=== PATIENT | male | born 1950 | race Caucasian/White ===

== ENCOUNTER 2016-07-19 06:07 | Inpatient (IN) | payer OTHER ==
[~2016-07-19] VITALS: Ht 177.8 cm; Wt 104.2 kg
[2016-07-19] MEDS ORDERED: 0.9% SODIUM CHLORIDE 5 ML NEB SOLUTION NEB ONE ×2 (06:28→10:16)
[2016-07-19] MEDS ORDERED: ALBUTEROL SULFATE 5 MG/ML 20 ML NEB SOLN [BULK] NEB ONE ×2 (06:30→10:00)
[2016-07-19] MEDS ORDERED: IPRATROPIUM BROMIDE 0.5 MG/2.5 ML NEB SOLUTION NEB ONE ×2 (06:30→10:00)
[2016-07-19] MEDS ORDERED: OMEG100019 PO (06:34)
[2016-07-19] MEDS ORDERED: ASPI-556 PO (06:34)
[2016-07-19 06:44] LABS: BASOPHILS % (AUTO) 0.9 % (0.0-2.0); EOSINOPHILS # (AUTO) 0.03 K/uL (0.00-0.70); EOSINOPHILS % (AUTO) 0.25 % (1.0-6.0); HEMATOCRIT 47.7 % (41-53); HEMOGLOBIN 15.9 g/dL (13.5-17.5); LYMPHOCYTES # (AUTO) 2.8 K/uL (1.0-4.8); LYMPHOCYTES % (AUTO) 24.3 % (22.0-44.0); MEAN CORPUSCULAR HEMOGLOBIN 28.7 pg (26.0-34.0); MEAN CORPUSCULAR HGB CONC 33.4 G/dL (31.0-37.0); MEAN CORPUSCULAR VOLUME 86 fL (80-100); MONOCYTES # (AUTO) 0.6 K/uL (0.1-1.0); MONOCYTES % (AUTO) 5.2 % (2.0-9.0); NEUTROPHILS % (AUTO) 69.4 % (40.0-70.0); PLATELET COUNT (AUTO) 430 K/uL (150-450); RED BLOOD CELL COUNT(AUTO) 5.55 MIL/uL (4.50-5.90); WHITE BLOOD COUNT (AUTO) 11.5 K/uL (4.5-11.0)
[2016-07-19 06:55] LABS: ANION GAP 15 mmol/L (8-16); CARBON DIOXIDE 23 mmol/L (22-29); CHLORIDE 99 mmol/L (98-107); CREATININE 1.19 mg/dL (0.60-1.30); GLOMERULAR FILTR. RATE CALC > 60 mL/min (>60); POTASSIUM 3.3 mmol/L (3.5-5.1); SODIUM SERUM 137 mmol/L (136-145); UREA NITROGEN, BLOOD 17 mg/dL (7-18)
[2016-07-19] MEDS ORDERED: SODIUM CHLORIDE 0.9% 100 ML ONE (06:55)
[2016-07-19] MEDS ORDERED: IOVERSOL 350 MG/ML 100 ML VIAL ONE (06:55)
[2016-07-19] MEDS ORDERED: MethylPREDNISolone SOD SUCC 125 MG/2 ML VIAL IVP ONE (07:00)
[2016-07-19 07:01] LABS: ALANINE AMINOTRANSFERASE 35 U/L (12-78); ALBUMIN 3.2 g/dL (3.4-5.0); ASPARTATE AMINOTRANSFERASE 34 U/L (15-37); BILIRUBIN,TOTAL 0.9 mg/dL (0.1-1.0); TOTAL PROTEIN, SERUM 9.1 g/dL (6.4-8.2)
[2016-07-19] MEDS ORDERED: POTASSIUM CHLORIDE 20 MEQ ER TABLET PO ONE (07:15)
[2016-07-19 07:16] LABS: B-TYPE NATRIURETIC PEPTIDE 1220 pg/mL (0-100)
[2016-07-19 07:33] LABS: PHOSPHORUS 3.7 mg/dL (2.5-4.9)
[2016-07-19] MEDS ORDERED: NITROGLYCERIN 2% (1 GM=INCH) PACKET TP ONE (08:45)
[2016-07-19] MEDS ORDERED: FUROSEMIDE 40 MG/4 ML VIAL IVP ONE (08:45)
[2016-07-19] MEDS ORDERED: LEVOFLOXACIN 750 MG/D5% WATER 150 ML IV ONE (08:45)
[2016-07-19 08:46] LABS: APPEARANCE,URINE CLEAR (CLEAR); GLUCOSE, URINE (UA) NEGATIVE (NEGATIVE); KETONES,URINE NEGATIVE (NEGATIVE); LEUKOCYTE ESTERASE ,URINE NEGATIVE (NEGATIVE); OCCULT BLOOD,URINE NEGATIVE (NEGATIVE); PROTEIN,URINE TRACE (NEGATIVE)
[2016-07-19 08:47] LABS: ADD UA MICROSCOPIC NO
[2016-07-19] MEDS ORDERED: ACETAMINOPHEN 325 MG TABLET PO PRN ×2 (09:00→17:00)
[2016-07-19] MEDS ORDERED: 0.9% SODIUM CHLORIDE 10 ML SYRINGE IVP PRN (09:00)
[2016-07-19] MEDS ORDERED: ALBUTEROL SULFATE 2.5 MG/0.5 ML NEB SOLUTION NEB SCH (11:00)
[2016-07-19] MEDS ORDERED: IPRATROPIUM BROMIDE 0.5 MG/2.5 ML NEB SOLUTION NEB SCH (11:00)
[2016-07-19 11:38] LABS: ABG A-A DIFF O2 207.1 mmHg (10-20.0); ABG BASE EXCESS -6.6 mmol/L (-2.0-3.0); ABG HCO3 20.9 mmol/L (22.0-26.0); ABG OXYHEMOGLOBIN 93.8 % (94.0-100.0); ABG PCO2 23 mmHg (35-45); ABG PH 7.481 (7.35-7.450); ALLEN TEST, BLOOD GAS Positive; TEMPERATURE, FAHRENHEIT, BG 98.6 FAHREN (96.0-98.6)
[2016-07-19 11:39] LABS: IPAP, BG 10 cm H2O
[2016-07-19] MEDS ORDERED: LORazepam 2 MG/ML VIAL IVP ONE (12:45)
[2016-07-19 16:19] VITALS: BP 118/73
[2016-07-19] MEDS ORDERED: IPRATROPIUM BROMIDE 0.5 MG/2.5 ML NEB SOLUTION NEB PRN (17:00)
[2016-07-19] MEDS ORDERED: ONDANSETRON HCL 4 MG/2 ML VIAL IVP PRN (17:00)
[2016-07-19] MEDS ORDERED: MORPHINE SULFATE 4 MG/ML SYRINGE IVP PRN (17:00)
[2016-07-19] MEDS ORDERED: BISACODYL 10 MG RECTAL RECTAL SUPPOSITORY PR PRN (17:00)
[2016-07-19] MEDS ORDERED: PNEUMOCOCCAL VACCINE POLYVALENT 0.5 ML VIAL [PPSV23] IM ONE (17:00)
[2016-07-19] MEDS ORDERED: ALBUTEROL SULFATE 2.5 MG/0.5 ML NEB SOLUTION NEB PRN (17:00)
[2016-07-19] MEDS ORDERED: MAGNESIUM HYDROXIDE SUSPENSION 30 ML UDCUP PO PRN (17:00)
[2016-07-19] MEDS: MethylPREDNISolone SOD SUCC 125 MG/2 ML VIAL IVP SCH ×2 (17:45→23:23)
[2016-07-19 19:15] VITALS: BP 120/71
[2016-07-19] MEDS: IPRATROPIUM BROMIDE 0.5 MG/2.5 ML NEB SOLUTION NEB SCH ×2 (19:23→22:51)
[2016-07-19] MEDS: ALBUTEROL SULFATE 2.5 MG/0.5 ML NEB SOLUTION NEB SCH ×2 (19:23→22:51)
[2016-07-19] MEDS: DOCUSATE SODIUM 100 MG CAPSULE PO SCH (20:55)
[2016-07-19] MEDS: HEPARIN SODIUM,PORCINE 5,000 UNITS/ML VIAL SQ SCH (23:24)
[2016-07-19 23:46] VITALS: BP 119/67
[2016-07-20] MEDS: IPRATROPIUM BROMIDE 0.5 MG/2.5 ML NEB SOLUTION NEB SCH ×6 (03:37→23:04)
[2016-07-20] MEDS: ALBUTEROL SULFATE 2.5 MG/0.5 ML NEB SOLUTION NEB SCH ×6 (03:37→23:04)
[2016-07-20 04:32] VITALS: BP 119/55
[2016-07-20] MEDS: MethylPREDNISolone SOD SUCC 125 MG/2 ML VIAL IVP SCH ×4 (05:30→23:17)
[2016-07-20 06:58] LABS: EOSINOPHILS % (AUTO) 0.1 % (1.0-6.0); HEMATOCRIT 46.7 % (41-53); HEMOGLOBIN 14.8 g/dL (13.5-17.5); LYMPHOCYTES % (AUTO) 6.1 % (22.0-44.0); MEAN CORPUSCULAR HEMOGLOBIN 28.2 pg (26.0-34.0); MEAN CORPUSCULAR HGB CONC 31.8 G/dL (31.0-37.0); MEAN CORPUSCULAR VOLUME 89 fL (80-100); MONOCYTES # (AUTO) 0.1 K/uL (0.1-1.0); MONOCYTES % (AUTO) 0.9 % (2.0-9.0); NEUTROPHILS # (AUTO) 14.4 K/uL (1.8-7.7); PLATELET COUNT (AUTO) 408 K/uL (150-450); RED BLOOD CELL COUNT(AUTO) 5.25 MIL/uL (4.50-5.90); RED CELL DISTRIBUTION WIDTH 15.5 % (11.5-14.5); WHITE BLOOD COUNT (AUTO) 15.5 K/uL (4.5-11.0)
[2016-07-20 07:08] LABS: NEUTROPHILS % (AUTO) 92.9 % (40.0-70.0)
[2016-07-20 07:52] VITALS: BP 114/70
[2016-07-20 07:58] LABS: ALANINE AMINOTRANSFERASE 36 U/L (12-78); ALBUMIN 2.9 g/dL (3.4-5.0); ANION GAP 12 mmol/L (8-16); ASPARTATE AMINOTRANSFERASE 36 U/L (15-37); BILIRUBIN,TOTAL 0.6 mg/dL (0.1-1.0); CALCIUM, TOTAL 9.3 mg/dL (8.8-10.5); CARBON DIOXIDE 24 mmol/L (22-29); CHLORIDE 102 mmol/L (98-107); CREATININE 1.16 mg/dL (0.60-1.30); GLOMERULAR FILTR. RATE CALC > 60 mL/min (>60); POTASSIUM 3.9 mmol/L (3.5-5.1); SODIUM SERUM 138 mmol/L (136-145); TOTAL PROTEIN, SERUM 8.2 g/dL (6.4-8.2); UREA NITROGEN, BLOOD 22 mg/dL (7-18)
[2016-07-20] MEDS: HEPARIN SODIUM,PORCINE 5,000 UNITS/ML VIAL SQ SCH ×3 (08:16→23:17)
[2016-07-20] MEDS: PANTOPRAZOLE SODIUM 40 MG/VIAL IVP SCH (08:16)
[2016-07-20] MEDS: DOCUSATE SODIUM 100 MG CAPSULE PO SCH ×2 (08:17→20:11)
[2016-07-20 11:21] VITALS: BP 99/68
[2016-07-20 15:35] VITALS: BP 107/78
[2016-07-20] MEDS: NICOTINE 21 MG/24 HOUR PATCH TD SCH (16:12)
[2016-07-20] MEDS: BUDESONIDE 0.5 MG/2 ML NEB SOLUTION NEB SCH (19:59)
[2016-07-20 20:08] VITALS: BP 114/83
[2016-07-21 00:02] VITALS: BP 127/61
[2016-07-21] MEDS: ALBUTEROL SULFATE 2.5 MG/0.5 ML NEB SOLUTION NEB SCH ×6 (04:09→23:38)
[2016-07-21] MEDS: IPRATROPIUM BROMIDE 0.5 MG/2.5 ML NEB SOLUTION NEB SCH ×6 (04:09→23:38)
[2016-07-21 05:09] VITALS: BP_SYST 102; BP_SYST 68; BP_DIAS 68
[2016-07-21] MEDS: MethylPREDNISolone SOD SUCC 125 MG/2 ML VIAL IVP SCH ×4 (06:05→23:34)
[2016-07-21 06:55] LABS: BASOPHILS % (AUTO) 1.3 % (0.0-2.0); EOSINOPHILS % (AUTO) 0 % (1.0-6.0); HEMATOCRIT 44.8 % (41-53); HEMOGLOBIN 14.1 g/dL (13.5-17.5); LYMPHOCYTES # (AUTO) 1.2 K/uL (1.0-4.8); LYMPHOCYTES % (AUTO) 4.5 % (22.0-44.0); MEAN CORPUSCULAR HGB CONC 31.5 G/dL (31.0-37.0); MEAN CORPUSCULAR VOLUME 89 fL (80-100); MONOCYTES # (AUTO) 0.7 K/uL (0.1-1.0); MONOCYTES % (AUTO) 2.5 % (2.0-9.0); NEUTROPHILS # (AUTO) 24.4 K/uL (1.8-7.7); PLATELET COUNT (AUTO) 365 K/uL (150-450); RED BLOOD CELL COUNT(AUTO) 5.04 MIL/uL (4.50-5.90); RED CELL DISTRIBUTION WIDTH 15.4 % (11.5-14.5); WHITE BLOOD COUNT (AUTO) 26.6 K/uL (4.5-11.0)
[2016-07-21 07:09] LABS: NEUTROPHILS % (AUTO) 91.7 % (40.0-70.0)
[2016-07-21 07:10] LABS: RBC MORPHOLOGY COMMENT NORMAL RBC MORPH
[2016-07-21 07:14] LABS: ALANINE AMINOTRANSFERASE 61 U/L (12-78); ANION GAP 11 mmol/L (8-16); ASPARTATE AMINOTRANSFERASE 60 U/L (15-37); BILIRUBIN,TOTAL 0.4 mg/dL (0.1-1.0); CALCIUM, TOTAL 9.3 mg/dL (8.8-10.5); CARBON DIOXIDE 25 mmol/L (22-29); CHLORIDE 104 mmol/L (98-107); GLOMERULAR FILTR. RATE CALC > 60 mL/min (>60); POTASSIUM 4.3 mmol/L (3.5-5.1); SODIUM SERUM 140 mmol/L (136-145); TOTAL PROTEIN, SERUM 7.8 g/dL (6.4-8.2); UREA NITROGEN, BLOOD 27 mg/dL (7-18)
[2016-07-21] MEDS: DOCUSATE SODIUM 100 MG CAPSULE PO SCH ×2 (07:54→20:28)
[2016-07-21] MEDS: NICOTINE 21 MG/24 HOUR PATCH TD SCH (07:55)
[2016-07-21] MEDS: PANTOPRAZOLE SODIUM 40 MG/VIAL IVP SCH (07:55)
[2016-07-21] MEDS: HEPARIN SODIUM,PORCINE 5,000 UNITS/ML VIAL SQ SCH ×3 (07:55→23:34)
[2016-07-21] MEDS: BUDESONIDE 0.5 MG/2 ML NEB SOLUTION NEB SCH ×2 (08:05→19:35)
[2016-07-21 08:10] VITALS: BP 150/76
[2016-07-21 11:27] LABS: ABG A-A DIFF O2 73.1 mmHg (10-20.0); ABG HCO3 21.7 mmol/L (22.0-26.0); ABG OXYHEMOGLOBIN 73.7 % (94.0-100.0); ABG PCO2 30 mmHg (35-45); ABG PH 7.443 (7.35-7.450); TEMPERATURE, FAHRENHEIT, BG 98.6 FAHREN (96.0-98.6)
[2016-07-21 11:28] LABS: ALLEN TEST, BLOOD GAS Positive
[2016-07-21 11:41] VITALS: BP 103/58
[2016-07-21 15:59] VITALS: BP 111/68
[2016-07-21] MEDS ORDERED: BUDE0.5A3 NEB (18:23)
[2016-07-21] MEDS ORDERED: AUD NEB (18:23)
[2016-07-21] MEDS ORDERED: DSS100 PO (18:23)
[2016-07-21] MEDS ORDERED: IPRNEB IH (18:27)
[2016-07-21] MEDS ORDERED: HEPA500035 SQ (18:27)
[2016-07-21] MEDS ORDERED: SM500I IV (18:29)
[2016-07-21] MEDS ORDERED: NICO21T TD (18:30)
[2016-07-21] MEDS ORDERED: PANT40I IVP (18:31)
[2016-07-21] MEDS ORDERED: ACET-784 PO (18:32)
[2016-07-21 19:58] VITALS: BP 119/66
[2016-07-22 00:40] VITALS: BP 110/74
[2016-07-22] MEDS: ALBUTEROL SULFATE 2.5 MG/0.5 ML NEB SOLUTION NEB SCH ×6 (03:11→23:35)
[2016-07-22] MEDS: IPRATROPIUM BROMIDE 0.5 MG/2.5 ML NEB SOLUTION NEB SCH ×6 (03:11→23:35)
[2016-07-22 05:29] VITALS: BP 115/73
[2016-07-22] MEDS: MethylPREDNISolone SOD SUCC 125 MG/2 ML VIAL IVP SCH ×4 (05:46→23:53)
[2016-07-22 06:41] LABS: BASOPHILS % (AUTO) 0.1 % (0.0-2.0); EOSINOPHILS % (AUTO) 0.1 % (1.0-6.0); HEMATOCRIT 44.4 % (41-53); HEMOGLOBIN 13.8 g/dL (13.5-17.5); LYMPHOCYTES # (AUTO) 0.9 K/uL (1.0-4.8); LYMPHOCYTES % (AUTO) 4.5 % (22.0-44.0); MEAN CORPUSCULAR HEMOGLOBIN 27.8 pg (26.0-34.0); MEAN CORPUSCULAR HGB CONC 31.2 G/dL (31.0-37.0); MEAN CORPUSCULAR VOLUME 89 fL (80-100); MONOCYTES # (AUTO) 0.2 K/uL (0.1-1.0); MONOCYTES % (AUTO) 1.3 % (2.0-9.0); NEUTROPHILS # (AUTO) 17.7 K/uL (1.8-7.7); PLATELET COUNT (AUTO) 368 K/uL (150-450); RED BLOOD CELL COUNT(AUTO) 4.98 MIL/uL (4.50-5.90); RED CELL DISTRIBUTION WIDTH 16.1 % (11.5-14.5); WHITE BLOOD COUNT (AUTO) 18.9 K/uL (4.5-11.0)
[2016-07-22 07:07] LABS: ALANINE AMINOTRANSFERASE 158 U/L (12-78); ANION GAP 9 mmol/L (8-16); ASPARTATE AMINOTRANSFERASE 112 U/L (15-37); BILIRUBIN,TOTAL 0.4 mg/dL (0.1-1.0); CALCIUM, TOTAL 9.1 mg/dL (8.8-10.5); CARBON DIOXIDE 26 mmol/L (22-29); CHLORIDE 103 mmol/L (98-107); CREATININE 0.98 mg/dL (0.60-1.30); GLOMERULAR FILTR. RATE CALC > 60 mL/min (>60); SODIUM SERUM 138 mmol/L (136-145); TOTAL PROTEIN, SERUM 7.6 g/dL (6.4-8.2); UREA NITROGEN, BLOOD 26 mg/dL (7-18)
[2016-07-22] MEDS: BUDESONIDE 0.5 MG/2 ML NEB SOLUTION NEB SCH ×2 (07:42→19:47)
[2016-07-22 07:56] VITALS: BP 108/59
[2016-07-22] MEDS: DOCUSATE SODIUM 100 MG CAPSULE PO SCH ×2 (07:58→19:52)
[2016-07-22] MEDS: HEPARIN SODIUM,PORCINE 5,000 UNITS/ML VIAL SQ SCH ×3 (08:03→23:53)
[2016-07-22] MEDS: PANTOPRAZOLE SODIUM 40 MG/VIAL IVP SCH (08:03)
[2016-07-22] MEDS: NICOTINE 21 MG/24 HOUR PATCH TD SCH (08:03)
[2016-07-22 11:40] VITALS: BP 110/59
[2016-07-22] MEDS: BENZOCAINE/MENTHOL LOZENGE [8 LOZENGES/PACKET] PO PRN ×2 (13:14→23:53)
[2016-07-22 16:23] VITALS: BP 121/68
[2016-07-22 20:59] VITALS: BP 99/68
[2016-07-22] MEDS: ZOLPIDEM TARTRATE 5 MG TABLET PO PRN (23:53)
[2016-07-23] VITALS (7 sets, daily range): BP systolic 97–112; BP diastolic 46–78
[2016-07-23] MEDS: ALBUTEROL SULFATE 2.5 MG/0.5 ML NEB SOLUTION NEB SCH ×6 (03:00→22:53)
[2016-07-23] MEDS: IPRATROPIUM BROMIDE 0.5 MG/2.5 ML NEB SOLUTION NEB SCH ×6 (03:00→22:53)
[2016-07-23] MEDS: MethylPREDNISolone SOD SUCC 125 MG/2 ML VIAL IVP SCH ×4 (06:28→23:24)
[2016-07-23] MEDS: BENZOCAINE/MENTHOL LOZENGE [8 LOZENGES/PACKET] PO PRN ×4 (06:28→21:06)
[2016-07-23 06:53] LABS: BASOPHILS % (AUTO) 0.2 % (0.0-2.0); EOSINOPHILS % (AUTO) 0 % (1.0-6.0); HEMATOCRIT 42.2 % (41-53); HEMOGLOBIN 13.4 g/dL (13.5-17.5); LYMPHOCYTES # (AUTO) 0.8 K/uL (1.0-4.8); LYMPHOCYTES % (AUTO) 6.2 % (22.0-44.0); MEAN CORPUSCULAR HGB CONC 31.7 G/dL (31.0-37.0); MEAN CORPUSCULAR VOLUME 88 fL (80-100); MONOCYTES # (AUTO) 0.3 K/uL (0.1-1.0); MONOCYTES % (AUTO) 1.9 % (2.0-9.0); NEUTROPHILS # (AUTO) 12.6 K/uL (1.8-7.7); PLATELET COUNT (AUTO) 338 K/uL (150-450); RED BLOOD CELL COUNT(AUTO) 4.78 MIL/uL (4.50-5.90); RED CELL DISTRIBUTION WIDTH 15.8 % (11.5-14.5); WHITE BLOOD COUNT (AUTO) 13.7 K/uL (4.5-11.0)
[2016-07-23 06:56] LABS: NEUTROPHILS % (AUTO) 91.7 % (40.0-70.0)
[2016-07-23 06:57] LABS: ALANINE AMINOTRANSFERASE 152 U/L (12-78); ALBUMIN 2.9 g/dL (3.4-5.0); ANION GAP 6 mmol/L (8-16); ASPARTATE AMINOTRANSFERASE 71 U/L (15-37); BILIRUBIN,TOTAL 0.7 mg/dL (0.1-1.0); CALCIUM, TOTAL 8.7 mg/dL (8.8-10.5); CARBON DIOXIDE 28 mmol/L (22-29); CHLORIDE 103 mmol/L (98-107); CREATININE 0.86 mg/dL (0.60-1.30); GLOMERULAR FILTR. RATE CALC > 60 mL/min (>60); POTASSIUM 4.5 mmol/L (3.5-5.1); SODIUM SERUM 137 mmol/L (136-145); UREA NITROGEN, BLOOD 22 mg/dL (7-18)
[2016-07-23] MEDS: BUDESONIDE 0.5 MG/2 ML NEB SOLUTION NEB SCH ×2 (07:42→20:47)
[2016-07-23] MEDS: NICOTINE 21 MG/24 HOUR PATCH TD SCH (09:51)
[2016-07-23] MEDS: DOCUSATE SODIUM 100 MG CAPSULE PO SCH ×2 (09:51→21:00)
[2016-07-23] MEDS: PANTOPRAZOLE SODIUM 40 MG/VIAL IVP SCH (09:51)
[2016-07-23] MEDS: HEPARIN SODIUM,PORCINE 5,000 UNITS/ML VIAL SQ SCH ×3 (09:51→23:24)
[2016-07-23] MEDS: ZOLPIDEM TARTRATE 5 MG TABLET PO PRN (23:24)
[2016-07-24] MEDS: ALBUTEROL SULFATE 2.5 MG/0.5 ML NEB SOLUTION NEB SCH ×4 (02:46→17:06)
[2016-07-24] MEDS: IPRATROPIUM BROMIDE 0.5 MG/2.5 ML NEB SOLUTION NEB SCH ×4 (02:46→17:07)
[2016-07-24] MEDS: BENZOCAINE/MENTHOL LOZENGE [8 LOZENGES/PACKET] PO PRN ×2 (04:38→10:17)
[2016-07-24 05:04] VITALS: BP 100/60
[2016-07-24] MEDS: MethylPREDNISolone SOD SUCC 125 MG/2 ML VIAL IVP SCH ×2 (06:11→11:44)
[2016-07-24 06:42] LABS: BASOPHILS % (AUTO) 0.1 % (0.0-2.0); EOSINOPHILS % (AUTO) 0.1 % (1.0-6.0); HEMOGLOBIN 14.4 g/dL (13.5-17.5); LYMPHOCYTES # (AUTO) 0.7 K/uL (1.0-4.8); LYMPHOCYTES % (AUTO) 4.5 % (22.0-44.0); MEAN CORPUSCULAR HEMOGLOBIN 27.8 pg (26.0-34.0); MEAN CORPUSCULAR HGB CONC 31.1 G/dL (31.0-37.0); MEAN CORPUSCULAR VOLUME 89 fL (80-100); MONOCYTES # (AUTO) 0.4 K/uL (0.1-1.0); MONOCYTES % (AUTO) 2.5 % (2.0-9.0); NEUTROPHILS # (AUTO) 14.6 K/uL (1.8-7.7); PLATELET COUNT (AUTO) 330 K/uL (150-450); RED CELL DISTRIBUTION WIDTH 15.8 % (11.5-14.5); WHITE BLOOD COUNT (AUTO) 15.7 K/uL (4.5-11.0)
[2016-07-24 06:51] LABS: ALANINE AMINOTRANSFERASE 188 U/L (12-78); ANION GAP 10 mmol/L (8-16); ASPARTATE AMINOTRANSFERASE 85 U/L (15-37); BILIRUBIN,TOTAL 0.7 mg/dL (0.1-1.0); CALCIUM, TOTAL 8.9 mg/dL (8.8-10.5); CARBON DIOXIDE 26 mmol/L (22-29); CHLORIDE 101 mmol/L (98-107); CREATININE 0.95 mg/dL (0.60-1.30); GLOMERULAR FILTR. RATE CALC > 60 mL/min (>60); SODIUM SERUM 137 mmol/L (136-145); TOTAL PROTEIN, SERUM 7.2 g/dL (6.4-8.2); UREA NITROGEN, BLOOD 22 mg/dL (7-18)
[2016-07-24 07:06] LABS: HEMATOCRIT 44.5 % (41-53); NEUTROPHILS % (AUTO) 92.8 % (40.0-70.0)
[2016-07-24 07:07] LABS: RBC MORPHOLOGY COMMENT NORMAL RBC MORPH
[2016-07-24] MEDS: HEPARIN SODIUM,PORCINE 5,000 UNITS/ML VIAL SQ SCH ×2 (08:12→16:32)
[2016-07-24] MEDS: PANTOPRAZOLE SODIUM 40 MG/VIAL IVP SCH (08:14)
[2016-07-24] MEDS: NICOTINE 21 MG/24 HOUR PATCH TD SCH (08:14)
[2016-07-24] MEDS: DOCUSATE SODIUM 100 MG CAPSULE PO SCH (08:20)
[2016-07-24] MEDS: BUDESONIDE 0.5 MG/2 ML NEB SOLUTION NEB SCH (08:39)
[2016-07-24 11:13] VITALS: BP 117/65
[2016-07-24] MEDS ORDERED: MethylPREDNISolone SOD SUCC 125 MG/2 ML VIAL IVP SCH (18:00)
[2016-07-24] MEDS ORDERED: PredniSONE 20 MG TABLET PO ONE (18:15)
== END 2016-07-24 18:40 | disposition left against medical advice (07) | DRG 189 ==
LOC: EMS 06:11 → 5S 13:18
PROVIDERS: ADMIT Hospitalist; ATTEND Hospitalist
PROC: 5A09457 Assistance with Respiratory Ventilation, 24-96 Consecutive Hours, Continuous Positive Airway Pressure (ICD-10-PCS; principal; 2016-07-19)
DX: J96.01 Acute respiratory failure with hypoxia (principal); J44.1 Chronic obstructive pulmonary disease with (acute) exacerbation; J44.0 Chronic obstructive pulmonary disease with (acute) lower respiratory infection; R59.0 Localized enlarged lymph nodes; D72.829 Elevated white blood cell count, unspecified; F17.210 Nicotine dependence, cigarettes, uncomplicated; E78.00 Pure hypercholesterolemia, unspecified; E78.5 Hyperlipidemia, unspecified; T38.0X5A Adverse effect of glucocorticoids and synthetic analogues, initial encounter; R74.0 Nonspecific elevation of levels of transaminase and lactic acid dehydrogenase [LDH]; J84.112 Idiopathic pulmonary fibrosis; Z79.899 Other long term (current) drug therapy; Z79.82 Long term (current) use of aspirin; Y93.89 Activity, other specified; Y92.89 Other specified places as the place of occurrence of the external cause; Y99.8 Other external cause status
CPT/HCPCS: 71275; 80307; 82805; 83735; 84100; 87040; 93005; 93306; 94640; 94644; 94660; 96365; 96375; 99291; 99406; C9113; J1644; J1940; J1956; J2060; J2930; J7050